=== PATIENT | female | born 1995 | race Caucasian/White ===

== ENCOUNTER 2017-10-11 08:46 | Emergency (ER) | payer OTHER ==
[2017-10-11 08:52] VITALS: TEMP 97.4; BMI 24.0
--- NOTE | 2017-10-11 09:29 | PDOC ---
History of Present Illness - General History Source: Patient Exam Limitations: No Limitations - History of Present Illness Initial Comments: 10/11/17 11:03 Patient is a 22 year old female with no significant past medical history who presents to the ED with complaints of nausea/vomiting that began this morning at 5am. Patient reports waking up this morning experiencing nausea and vomiting suddenly that she states occurred every 30 minutes. She reports currently experiencing only dry heaving while in the ED, but states does currently feel nauseous. Denies chest pain, SOB. Denies fevers, chills. Denies fevers, chills. Denies contact with sick individuals, out of state travelling. Denies any other symptoms. Allergies: None Social history: No alcohol. No illicit drugs. No smoking. Surgical history: None PMD: None <Trent Knowles - Last Filed: 10/11/17 11:03> <Nicki Cullen - Last Filed: 10/11/17 12:03> - General Chief Complaint: Nausea/Vomiting Stated Complaint: VOMITING Time Seen by Provider: 10/11/17 09:28 Past History <Trent Knowles - Last Filed: 10/11/17 11:03> - Past Medical History Asthma: Yes COPD: No - Reproductive History Is Patient Now?: No - Immunization History Immunization Up to Date: Yes - Suicide/Smoking/Psychosocial Hx Smoking History: Never smoked Hx Alcohol Use: No Drug/Substance Use Hx: No Substance Use Type: None <Nicki Cullen - Last Filed: 10/11/17 12:03> - Past Medical History Allergies/Adverse Reactions: Allergies Allergy/AdvReac Type Severity Reaction Status Date / Time No Known Allergies Allergy Verified 10/11/17 08:49 Home Medications: Ambulatory Orders Fluticasone/Salmeterol [Advair Hfa 115-21 Mcg Inhaler] 1 inh PO BID #1 inhaler 06/29/14 Albuterol Sulfate [Proair Respiclick] 90 mcg IH DAILY 08/22/16 Review of Systems - Review of Systems Able to Perform ROS?: Yes Comments:: 10/11/17 11:03 GENERAL/CONSTITUTIONAL: No fever or chills. No weakness. HEAD, EYES, EARS, NOSE AND THROAT: No change in vision. No ear pain or discharge. No sore throat. GASTROINTESTINAL: +Vomiting. +Nausea. No diarrhea or constipation. GENITOURINARY: No dysuria, frequency, or change in urination. CARDIOVASCULAR: No chest pain or shortness of breath. RESPIRATORY: No cough, wheezing, or hemoptysis. MUSCULOSKELETAL: No joint or muscle swelling or pain. No neck or back pain. SKIN: No rash NEUROLOGIC: No headache, vertigo, loss of consciousness, or change in strength/ sensation. ENDOCRINE: No increased thirst. No abnormal weight change. HEMATOLOGIC/LYMPHATIC: No anemia, easy bleeding, or history of blood clots. ALLERGIC/IMMUNOLOGIC: No hives or skin allergy. All Other Systems: Reviewed and Negative <Trent Knowles - Last Filed: 10/11/17 11:03> *Physical Exam - Vital Signs Last Vital Signs Temp Pulse Resp BP Pulse Ox 97.4 F L 91 H 17 111/63 98 10/11/17 08:49 10/11/17 08:49 10/11/17 08:49 10/11/17 08:49 10/11/17 08:49 <Trent Knowles - Last Filed: 10/11/17 11:03> - Vital Signs Last Vital Signs Temp Pulse Resp BP Pulse Ox 97.4 F L 91 H 17 111/63 98 10/11/17 08:49 10/11/17 08:49 10/11/17 08:49 10/11/17 08:49 10/11/17 08:49 - Physical Exam Comments: GENERAL: Awake, alert, and fully oriented, in no acute distress HEAD: No signs of trauma EYES: PERRLA, EOMI, sclera anicteric, conjunctiva clear ENT: Auricles normal inspection, hearing grossly normal, nares patent, oropharynx clear without exudates. Dry mucosa NECK: Normal ROM, supple, no lymphadenopathy, JVD, or masses LUNGS: Breath sounds equal, clear to auscultation bilaterally. No wheezes, and no crackles HEART: Regular rate and rhythm, normal S1 and S2, no murmurs, rubs or gallops ABDOMEN: Soft, diffuse mild tenderness, +hyperactive bowel sounds. No guarding , no rebound. No masses EXTREMITIES: Normal range of motion, no edema. No clubbing or cyanosis. No cords, erythema, or tenderness NEUROLOGICAL: Cranial nerves II through XII grossly intact. Normal speech, normal gait SKIN: Warm, Dry, normal turgor, no rashes or lesions noted. <Nicki Cullen - Last Filed: 10/11/17 12:03> ED Treatment Course - Medications Given in the ED: ED Medications Discontinued Medications Generic Name Dose Route Start Last Admin Trade Name Marly PRN Reason Stop Dose Admin Famotidine/Sodium Chloride 20 mg in 50 mls @ 100 mls/hr 10/11/17 09:33 10:28 Pepcid 20 Mg Premixed Ivpb - IVPB 10/11/17 10:02 100 mls/hr ONCE ONE Administration Ondansetron HCl 4 mg 10/11/17 09:33 10/11/17 10:28 Zofran Injection IVPUSH 10/11/17 09:34 4 mg ONCE ONE Administration <Trent Knowles - Last Filed: 10/11/17 11:03> - LABORATORY CBC & Chemistry Diagram: 10/11/17 10:20 10/11/17 10:20 <Nicki Cullen - Last Filed: 10/11/17 12:03> Medical Decision Making - Medical Decision Making 10/11/17 11:58 Pt reassessed. She reports significant improvement in symptoms. Still having cramping. No signs of acute abdomen. Will give toradol and DC home. Rx for zofran. <Nicki Cullen - Last Filed: 10/11/17 12:03> *DC/Admit/Observation/Transfer - Attestations Scribe Attestion: 10/11/17 11:04 Documentation prepared by Trent Knowles, acting as medical staff physician for Nicki Cullen MD, /DO. <Trent Knowles - Last Filed: 10/11/17 11:03> - Discharge Dispostion Admit: No <Nicki Cullen - Last Filed: 10/11/17 12:03> Diagnosis at time of Disposition: Nausea and vomiting Qualifiers: Vomiting type: unspecified Vomiting Intractability: non-intractable Qualified Code(s): R11.2 - Nausea with vomiting, unspecified - Discharge Dispostion Disposition: HOME Condition at time of disposition: Stable - Patient Instructions Printed Discharge Instructions: DI for Vomiting -- Adult
[2017-10-11] MEDS ORDERED: FAMOTIDINE 20 MG/50 ML IVPB 20 MG/50 ML MG IVPB ONE ×2 (09:33→10:12)
[2017-10-11] MEDS ORDERED: ONDANSETRON 4 MG/2 ML VIAL IVPUSH ONE (09:33)
[2017-10-11] MEDS ORDERED: SODIUM CHLORIDE 2,000 ML IV STA (09:33)
[2017-10-11] MEDS ORDERED: ONDANSETRON 4 MG/2 ML VIAL ONE (10:12)
[2017-10-11 11:26] LABS: BASO % 0.3 % (0-2.0); EOS % 1.8 % (0-4.5); HEMATOCRIT 42.8 % (32.4-45.2); HEMOGLOBIN 14.4 GM/dL (10.7-15.3); LYMPH % 8.3 % (8-40); MCH 30.5 pg (25.7-33.7); MCHC 33.5 g/dl (32.0-36.0); MEAN CELL VOLUME 90.9 fl (80-96); MEAN PLT VOLUME 9.5 fl (7.5-11.1); NEUT % 86.6 % (42.8-82.8); PLATELET COUNT 232 K/MM3 (134-434); RBC 4.71 M/mm3 (3.60-5.2); RDW 12.9 % (11.6-15.6); WHITE BLOOD COUNT 8.7 K/mm3 (4.0-10.0)
[2017-10-11 11:28] LABS: HCG,QUALITATIVE URINE NEGATIVE; URINE APPEARANCE CLEAR; URINE BILIRUBIN NEGATIVE (NEGATIVE); URINE BLOOD 1+ (NEGATIVE); URINE COLOR STRAW; URINE GLUCOSE (UA) NEGATIVE (NEGATIVE); URINE KETONE NEGATIVE (NEGATIVE); URINE LEUK ESTERASE NEGATIVE (NEGATIVE); URINE NITRITE NEGATIVE (NEGATIVE); URINE PROTEIN NEGATIVE (NEGATIVE); URINE UROBILINOGEN NEGATIVE mg/dL (0.2-1.0)
[2017-10-11 11:46] LABS: ALBUMIN 3.7 g/dl (3.4-5.0); ANION GAP 10 (8-16); BLOOD UREA NITROGEN 11 mg/dL (7-18); CALCIUM 8.2 mg/dL (8.5-10.1); CHLORIDE 109 mmol/L (98-107); CO2 24 mmol/L (21-32); GLUCOSE,RANDOM 92 mg/dL (74-106); POTASSIUM 4.2 mmol/L (3.5-5.1); SGPT/ALT 32 U/L (12-78); SODIUM 143 mmol/L (136-145)
[2017-10-11 11:49] LABS: ALK PHOS 67 U/L (45-117); BILIRUBIN,TOTAL 0.9 mg/dL (0.2-1.0); CREATININE 0.6 mg/dL (0.55-1.02); SGOT/AST 24 U/L (15-37)
[2017-10-11] MEDS ORDERED: KETOROLAC TROMETHAMINE 30 MG/1 ML VIAL IVPUSH ONE (11:56)
[2017-10-11] MEDS ORDERED: KETOROLAC TROMETHAMINE 30 MG/1 ML VIAL ONE (12:09)
[2017-10-11 12:31] VITALS: BP 126/74; PULSE 72
[2017-10-11 13:05] LABS: EPI CELLS RARE /HPF (FEW)
[2017-10-11 13:06] LABS: URINE MUCUS RARE
== END 2017-10-11 12:49 | disposition home or self-care (01) ==
LOC: JER 08:46
PROC: 3E033GC Introduction of Other Therapeutic Substance into Peripheral Vein, Percutaneous Approach (ICD-10-PCS; principal; 2017-10-11)
PROC: 3E033GC Introduction of Other Therapeutic Substance into Peripheral Vein, Percutaneous Approach (ICD-10-PCS; 2017-10-11)
PROC: 3E0333Z Introduction of Anti-inflammatory into Peripheral Vein, Percutaneous Approach (ICD-10-PCS; 2017-10-11)
DX: R11.2 Nausea with vomiting, unspecified (principal)
CPT/HCPCS: 36415; 80053; 81003; 81015; 84703; 85025; 99282-25

== ENCOUNTER 2018-06-24 08:54 | Emergency (ER) | payer SELFPAY ==
[2018-06-24] MEDS ORDERED: METOCLOPRAMIDE HCL 10 MG TABLET (FP) PO ONE ×2 (09:13→09:24)
[2018-06-24] MEDS ORDERED: ACETAMINOPHEN 325 MG TABLET (FP) PO ONE (09:13)
--- NOTE | 2018-06-24 09:13 | PDOC ---
History of Present Illness - General Chief Complaint: Headache Stated Complaint: HEADACHE HIT HEAD ON SUNDAY Time Seen by Provider: 06/24/18 08:55 History Source: Patient Exam Limitations: No Limitations - History of Present Illness Initial Comments: 06/24/18 09:08 Gracie is a 23 yo female with no significant past medical history who presents emergency department with a complaint of headache. Patient states that days ago she slipped and fell (her dog spilled water on the floor which she did not see and slipped in it) She struck the back of her head No LOC No amnesia Since falling, she has noted an occipital headache she took motrin yesterday and went to sleep No neck pain or stiffness No nausea or vomiting No bruising PMH: Denies PSH: Denies Medication: Denies ALLERGIES: NKDA Social: Denies alcohol, drug, cigarette use. She is currently both a student and has a part-time job. ROS: GENERAL/CONSTITUTIONAL: No: fever, chills, weakness, loss of appetite. HEAD, EYES, EARS, NOSE AND THROAT: No: change in vision, ear pain, discharge, sore throat, throat swelling. CARDIOVASCULAR: No: chest pain, lightheadedness, palpitations, syncope RESPIRATORY: No: cough, shortness of breath, wheezing, hemoptysis, stridor. GASTROINTESTINAL: No: nausea, vomiting, diarrhea, abdominal pain GENITOURINARY: No: dysuria, hematuria, frequency, urgency, flank pain. MUSCULOSKELETAL: No: back pain, neck pain, joint pain, muscle swelling or pain SKIN: No: lesions, pallor, rash or easy bruising. NEUROLOGIC: Yes: headache No: vertigo, paresthesias, weakness ENDOCRINE: No: unexplained weight gain or loss HEMATOLOGIC/LYMPHATIC: No: anemia, easy bleeding, swelling nodes. GENERAL: The patient is in no acute distress. HEAD: Normal with no signs of trauma. EYES: PERRLA, EOMI, sclera anicteric, conjunctiva clear. ENT: Ears normal, nares patent, oropharynx clear without exudates. Moist mucous membranes. Cerumen impacted (hemotympanum could not be assessed) NECK: Normal range of motion, supple without midline tenderness LUNGS: Breath sounds equal, clear to auscultation bilaterally. No wheezes, and no crackles. HEART:Regular rate and rhythm, normal S1 and S2 without murmur, rub or gallop. ABDOMEN: Soft, nontender, normoactive bowel sounds. No guarding, no rebound. No masses palpable. EXTREMITIES: Normal range of motion, no edema. No clubbing or cyanosis. No erythema, or tenderness. NEUROLOGICAL: Cranial nerves II through XII grossly intact. Normal speech. No focal neurological deficits. MUSCULOSKELETAL: Back non-tender to palpation, no CVA tenderness SKIN: No bruising noted beneath the eyes or overlying the mastoid 06/24/18 09:13 Past History - Past Medical History Allergies/Adverse Reactions: Allergies Allergy/AdvReac Type Severity Reaction Status Date / Time No Known Allergies Allergy Verified 06/24/18 08:55 Home Medications: Ambulatory Orders Albuterol Sulfate [Proventil HFA Inhaler -] 1 - 2 inh PO BID 06/24/18 Metoclopramide HCl [Reglan -] 10 mg PO BID PRN #14 tablet 06/24/18 Asthma: Yes COPD: No DVT: No - Immunization History Immunization Up to Date: Yes - Suicide/Smoking/Psychosocial Hx Smoking History: Never smoked Hx Alcohol Use: No Drug/Substance Use Hx: No Substance Use Type: None Medical Decision Making - Medical Decision Making 06/24/18 09:26 Given presentation 4 days s/p injury, will avoid CT head (given her age, pt is neurologically in tact 4 days s/p injury) Most likely concussed Based on malian CT rules, CT not indicated Will discharge to home Will ask pt to follow up with PMD 06/24/18 12:49 *DC/Admit/Observation/Transfer Diagnosis at time of Disposition: Head trauma Qualifiers: Encounter type: initial encounter Qualified Code(s): S09.90XA - Unspecified injury of head, initial encounter Headache Qualifiers: Headache type: unspecified Headache chronicity pattern: unspecified pattern Intractability: not intractable Qualified Code(s): R51 - Headache - Discharge Dispostion Disposition: HOME Condition at time of disposition: Stable Decision to Admit order: No - Prescriptions Prescriptions: Metoclopramide HCl [Reglan -] 10 mg PO BID PRN #14 tablet PRN Reason: Headache - Referrals - Patient Instructions Printed Discharge Instructions: DI for Concussion, DI for Post-traumatic Headache, DI for Closed Head Injury, DI for Postconcussion Syndrome Additional Instructions: Gracie Thank you for coming in to the ER today Follow up with your primary care doctor within 48-72 hours. Rest. Take Acetaminophen (Extra strength Tylenol - 2 tablets) every 8 hours OR motrin 600mg every 8 hours, as needed, for pain. you can also take reglan for the headache as prescribed. Often individuals develop a headache associated with nausea in the days/hours after a head injury. This is called a concussion. Please return to the ED if you develop significant worsening of pain, profuse vomiting, dizziness, changes in vision, difficulty walking/speaking, weakness or numbness to your extremities. - Post Discharge Activity Forms/Work/School Notes: Back to Work, Back to School
[2018-06-24 09:19] VITALS: BP 106/73; PULSE 72; TEMP 98.7; BMI 24.4
[2018-06-24] MEDS ORDERED: ACETAMINOPHEN 325 MG TABLET (FP) ONE (09:24)
== END 2018-06-24 09:36 | disposition home or self-care (01) ==
LOC: FER 08:54
DX: S09.90XA Unspecified injury of head, initial encounter (principal); R51 Headache; W01.0XXA Fall on same level from slipping, tripping and stumbling without subsequent striking against object, initial encounter; Y93.89 Activity, other specified; Y92.008 Other place in unspecified non-institutional (private) residence as the place of occurrence of the external cause; J45.909 Unspecified asthma, uncomplicated
CPT/HCPCS: 99281-25

== ENCOUNTER 2018-07-04 19:38 | Emergency (ER) | payer SELFPAY ==
[2018-07-04 19:48] VITALS: BP 123/67; PULSE 90; TEMP 98.5; BMI 24.3
[2018-07-04] MEDS ORDERED: ALBUTEROL SO4 2.5/IPRATROPIUM 0.5 INH SOL 3 ML VIAL.NEB. NEB ONE ×4 (20:07→21:06)
--- NOTE | 2018-07-04 20:31 | PDOC ---
History of Present Illness - General History Source: Patient Exam Limitations: No Limitations - History of Present Illness Initial Comments: 07/04/18 20:42 The patient is a 23 year old female presenting with her friend, with a significant past medical history of asthma, who presents to the ED complaining of shortness of breath, chest pain, nasal congestion, wheezing and cough for the past 5 days. She notes that she tried using albuterol at home, with minimal relief of her symptoms. She notes that her chest pain is a tightness that is mild in severity. She notes that her cough is wet but she is not producing any sputum. She denies any prior admissions for her asthma or intubations. The patient denies chest pain, headache and dizziness. Denies fever, chills, nausea, vomiting, diarrhea or constipation. Denies dysuria, frequency, urgency and hematuria. Allergies: None Past surgical history: None reported Social History: No tobacco or drug use reported <Eduard Lobato - Last Filed: 07/04/18 20:44> <Tonya Moreland - Last Filed: 07/05/18 05:00> - General Chief Complaint: Asthma Stated Complaint: CHEST TIGHTNESS Time Seen by Provider: 07/04/18 19:39 Past History <Eduard Lobato - Last Filed: 07/04/18 20:44> - Past Medical History Asthma: Yes COPD: No DVT: No - Immunization History Immunization Up to Date: Yes - Suicide/Smoking/Psychosocial Hx Smoking History: Never smoked Have you smoked in the past 12 months: No Hx Alcohol Use: No Drug/Substance Use Hx: No Substance Use Type: None <Tonya Moreland - Last Filed: 07/05/18 05:00> - Past Medical History Allergies/Adverse Reactions: Allergies Allergy/AdvReac Type Severity Reaction Status Date / Time No Known Allergies Allergy Verified 06/24/18 08:55 Home Medications: Ambulatory Orders Albuterol Sulfate [Proventil HFA Inhaler -] 1 - 2 inh PO BID 06/24/18 Albuterol Sulfate [Proair Hfa] 8.5 gm IH ASDIR 07/04/18 Prednisone [Deltasone] 20 mg PO DAILY #5 tablet 07/04/18 Review of Systems - Review of Systems Able to Perform ROS?: Yes Comments:: 07/04/18 20:42 GENERAL/CONSTITUTIONAL: No fever or chills. No weakness. HEAD, EYES, EARS, NOSE AND THROAT: (+) Nasal congestion. No change in vision. No ear pain or discharge. No sore throat. GASTROINTESTINAL: No nausea, vomiting, diarrhea or constipation. GENITOURINARY: No dysuria, frequency, or change in urination. CARDIOVASCULAR: (+) Shortness of breath and chest tightness. RESPIRATORY: (+) Cough, wheezing. No hemoptysis. MUSCULOSKELETAL: No joint or muscle swelling or pain. No neck or back pain. SKIN: No rash NEUROLOGIC: No headache, vertigo, loss of consciousness, or change in strength/ sensation. ENDOCRINE: No increased thirst. No abnormal weight change. HEMATOLOGIC/LYMPHATIC: No anemia, easy bleeding, or history of blood clots. ALLERGIC/IMMUNOLOGIC: No hives or skin allergy. <Eduard Lobato - Last Filed: 07/04/18 20:44> *Physical Exam - Vital Signs Last Vital Signs Temp Pulse Resp BP Pulse Ox 98.5 F 90 16 123/67 97 07/04/18 19:45 07/04/18 19:45 07/04/18 19:45 07/04/18 19:45 07/04/18 19:45 - Physical Exam Comments: 07/04/18 20:41 Constitutional: Awake, alert, oriented. No acute distress. Head: Normocephalic. Atraumatic Eyes: PERRL. EOMI. Conjunctivae are not pale. ENT: Mucous membranes are moist and intact. Posterior pharynx without exudates or erythema. Uvula midline. Neck: Supple. Full ROM. No lymphadenopathy. Cardiovascular: Regular rate. Regular rhythm. S1, S2 regular. Distal pulses are 2+ and symmetric. Pulmonary/Chest: (+) Scattered Expiratory wheezing. No evidence of respiratory distress. Abdominal: Soft and non-distended. There is no tenderness. No rebound, guarding or rigidity. No organomegaly. No palpable masses. Good bowel sounds. Back: No CVA tenderness. Musculoskeletal: No edema. No cyanosis. No clubbing. Full range of motion in all extremities. Nocalf tenderness. Radial/pedal pulses are intact and 2+ bilaterally Skin: Skin is warm and dry. No petechiae. No purpura. Neurological: Alert and oriented to person, place, and time. Cranial nerves II -XII are grossly intact. Normal speech. Strength is grossly symmetric. No sensory deficits. Psychiatric: Good eye contact. Normal interaction, affect and behavior. <Eduard Lobato - Last Filed: 07/04/18 20:44> - Vital Signs Last Vital Signs Temp Pulse Resp BP Pulse Ox 98.5 F 90 16 123/67 97 07/04/18 19:45 07/04/18 19:45 07/04/18 19:45 07/04/18 19:45 07/04/18 19:45 <Tonya Moreland - Last Filed: 07/05/18 05:00> ED Treatment Course - Medications Given in the ED: ED Medications Discontinued Medications Generic Name Dose Route Start Last Admin Trade Name Freq PRN Reason Stop Dose Admin Albuterol/Ipratropium 1 amp 07/04/18 20:39 07/04/18 20:00 Duoneb - NEB 07/04/18 20:40 1 amp ONCE ONE Administration <Eduard Lobato - Last Filed: 07/04/18 20:44> Medical Decision Making - Medical Decision Making Documentation has been prepared under my direction and personally reviewed by me in its entirety. I attest that this documented accurately reflects all work, treatment, procedures and medical decision making performed by me. As noted above, this 23-year-old woman with a lifelong history of asthma presents with a few day history of upper respiratory infection symptoms and one- day history of wheezing/chest tightness. Patient has no previous history of inpatient admission or intubation for her asthma. She uses albuterol inhaler/ nebulizer. She states that she had been prescribed Advair but had been generally noncompliant with its use. She reports no fever/chills or significant shortness of breath. She has nonpurulent phlegm. Exam as noted. Patient had received 2 DuoNeb treatments prior to exam. She had some residual expiratory wheezing after the second DuoNeb treatment and a third was given. After the third treatment, patient had excellent air exchange and no further expiratory wheezing. Patient given 40 mg prednisone by mouth. Five-day treatment of prednisone 20 mg daily prescribed. Patient should follow-up with her general doctor within the next 5 days and return to the ER if she has any further shortness of breath/chest tightness/persistent wheezing. Also, she should return or follow-up with her doctor sooner if she develops fever or purulent sputum <Tonya Moreland - Last Filed: 07/05/18 05:00> *DC/Admit/Observation/Transfer - Attestations Scribe Attestion: 07/04/18 20:41 Documentation prepared by Eduard Lobato, acting as center medical director for Tonya Moreland MD <Eduard Lobato - Last Filed: 07/04/18 20:44> <Tonya Moreland - Last Filed: 07/05/18 05:00> Diagnosis at time of Disposition: Asthma exacerbation Qualifiers: Asthma severity: moderate Asthma persistence: unspecified Qualified Code(s): J45.901 - Unspecified asthma with (acute) exacerbation - Discharge Dispostion Disposition: HOME Condition at time of disposition: Stable - Prescriptions Prescriptions: Prednisone [Deltasone] 20 mg PO DAILY #5 tablet - Referrals Referrals: Teresa Gipson [Primary Care Provider] - Call tomorrow - Patient Instructions Printed Discharge Instructions: Asthma -- Adult Additional Instructions: Continue albuterol nebulizer as needed Prednisone 20 mg daily for the next 5 days Return to ER if you have persistent wheezing/chest tightness or develop high fever/shortness of breath Call your healthcare provider tomorrow to make an appointment for follow-up within 5 days - Post Discharge Activity
[2018-07-04] MEDS ORDERED: predniSONE 20 MG TABLET (UD) PO ONE (21:00)
[2018-07-04] MEDS ORDERED: predniSONE 20 MG TABLET (UD) ONE (21:10)
== END 2018-07-04 21:13 | disposition home or self-care (01) ==
LOC: FER 19:38
PROC: 3E0F7GC Introduction of Other Therapeutic Substance into Respiratory Tract, Via Natural or Artificial Opening (ICD-10-PCS; principal; 2018-07-04)
DX: J45.901 Unspecified asthma with (acute) exacerbation (principal)
CPT/HCPCS: 99281-25; J7620

== ENCOUNTER 2019-02-15 18:22 | Emergency (ER) | payer SELFPAY, OTHER | END 2019-02-15 21:03 | disposition home or self-care (01) | LOC: JER 18:22 ==

== ENCOUNTER 2019-09-27 05:54 | Emergency (ER) | payer SELFPAY ==
[2019-09-27 06:52] VITALS: TEMP 97.6; BMI 21.4
[2019-09-27] MEDS ORDERED: FOLIC ACID INJECTION - 1 MG, THIAMINE HCL 100 MG, MULTIVIT INJECTION ADULT 10 ML in SOD... IVPB ONE (07:21)
[2019-09-27] MEDS ORDERED: ONDANSETRON 4 MG/2 ML VIAL IVPUSH ONE (07:22)
[2019-09-27] MEDS ORDERED: ONDANSETRON 4 MG/2 ML VIAL ONE (07:41)
--- NOTE | 2019-09-27 07:59 | PDOC ---
History of Present Illness - General Chief Complaint: Headache Stated Complaint: INTOX Time Seen by Provider: 09/27/19 07:17 - History of Present Illness Initial Comments: 09/27/19 07:51 CHIEF COMPLAINT: vomiting, headache HISTORY OF PRESENT ILLNESS: 24 yo F with hx of asthma presents to ED with abdominal pain, headache, and vomiting. Patient reports she "has had a UTI" and was taking azithromycin that she "just had" for the infection and went out drinking last night. Patient's cousin is at bedside and reports the patient "drank a lot more than the rest of us combined." Patient c/o of "burning headache" and generalized abdominal pain. No recent travel or sick contacts. PAST MEDICAL HISTORY: asthma FAMILY HISTORY: Denies SOCIAL HISTORY: Denies tobacco, alcohol, illicit drug use. SURGICAL HISTORY: Denies ALLERGIES: No known drug allergies REVIEW OF SYSTEMS General/Constitutional: Denies fever or chills. Denies weakness, weight change. HEENT: Denies change in vision. Denies ear pain or discharge. Denies sore throat. Cardiovascular: Denies chest pain or shortness of breath. Respiratory: Denies cough, wheezing, or hemoptysis. Gastrointestinal: Vomiting and diarrhea "all night." Denies rectal bleeding. Genitourinary: Denies dysuria, frequency, or change in urination. Musculoskeletal: Denies joint or muscle swelling or pain. Denies neck or back pain. Skin and breasts: Denies rash or easy bruising. Neurologic: Headache since this morning. Denies vertigo, loss of consciousness , or loss of sensation. Psychiatric: Denies depression or anxiety. PHYSICAL EXAM General Appearance: Well-appearing, appropriately dressed. No apparent distress , no intoxication. HEENT: EOMI, PERRLA, normal ENT inspection, normal voice, TMs normal, pharynx normal. No conjunctival pallor. No photophobia, scleral icterus. Neck: Supple. Trachea midline. No tenderness, rigidity, carotid bruit, stridor , lymphadenopathy, or thyromegaly. Respiratory/Chest: Lungs CTAB. No shortness of breath, chest tenderness, respiratory distress, accessory muscle use. No crackles, rales, rhonchi, stridor , wheezing, dullness Cardiovascular: RRR. S1, S2. No JVD, murmur, bradycardia, tachycardia. Vascular Pulses: Dorsalis-Pedis (R): 2+, Dorsalis-Pedis (L): 2+ Gastrointestinal/Abdominal: Generalized abdominal tenderness. No organomegaly , pulsatile mass, guarding, hernia, hepatomegaly, splenomegaly. Lymphatic: No adenopathy, tenderness. Musculoskeletal/Extremities: Normal inspection. FROM of all extremities, normal capillary refill. Pelvis Stable. No CVA tenderness. No tenderness to extremities, pedal edema, swelling, erythema or deformity. Integumentary: Appropriate color, dry, warm. No cyanosis, erythema, jaundice or rash Neurologic: operating room aide II-XII intact. Fully oriented, alert. Appropriate mood/affect. Motor strength 5/5. No appreciable EOM palsy, facial droop or sensory deficit. 09/27/19 10:22 Past History - Past Medical History Allergies/Adverse Reactions: Allergies Allergy/AdvReac Type Severity Reaction Status Date / Time amoxicillin AdvReac Rash Verified 09/27/19 06:36 Home Medications: Ambulatory Orders Ondansetron [Zofran *Odt*] 4 mg SL TID #21 od.tablet 09/27/19 Asthma: Yes COPD: No DVT: No - Immunization History Immunization Up to Date: Yes - Psycho Social/Smoking Cessation Hx Smoking History: Current every day smoker Have you smoked in the past 12 months: No Information on smoking cessation initiated: Yes Hx Alcohol Use: Yes Drug/Substance Use Hx: No Substance Use Type: None *Physical Exam - Vital Signs Last Vital Signs Temp Pulse Resp BP Pulse Ox 97.6 F 118 H 20 102/66 98 09/27/19 06:32 09/27/19 06:32 09/27/19 06:32 09/27/19 06:32 09/27/19 06:32 ED Treatment Course - LABORATORY CBC & Chemistry Diagram: 09/27/19 07:37 09/27/19 07:37 - Medications Given in the ED: ED Medications Discontinued Medications Generic Name Dose Route Start Last Admin Trade Name Freq PRN Reason Stop Dose Admin Ondansetron HCl 4 mg 09/27/19 07:22 09/27/19 07:45 Zofran Injection IVPUSH 09/27/19 07:23 4 mg ONCE ONE Administration Medical Decision Making - Medical Decision Making 09/27/19 10:23 24 yo F with hx of asthma presents to ED with abdominal pain, headache, and vomiting. -labs, zofran -toradol Labs unremarkable, likely viral gastroenteritis vs alcohol intox. Patient reassessed after administration of meds. Patient reports she is feeling much better and requests to go home. Patient appears dry from vomiting , attempted to finish banana bag but patient states she prefers to go home. Pt BP 97/59 but has low BP at baseline. Advised patient to take medication as prescribed and follow up with PCP within the next week. Advised patient of signs and symptoms for return to ED. Patient verbalized understanding and agrees to plan. Discharge - Discharge Information Problems reviewed: Yes Clinical Impression/Diagnosis: Gastroenteritis Alcohol intoxication Qualifiers: Complication of substance-induced condition: uncomplicated Qualified Code(s): F10.920 - Alcohol use, unspecified with intoxication, uncomplicated Condition: Stable Disposition: HOME - Admission No - Additional Discharge Information Prescriptions: Ondansetron [Zofran *Odt*] 4 mg SL TID #21 od.tablet - Follow up/Referral Referrals: Marquis Macias MD [Staff Physician] - - Patient Discharge Instructions Patient Printed Discharge Instructions: DI for Viral Gastroenteritis -- Adult, DI for Alcohol Poisoning - Post Discharge Activity
[2019-09-27 08:25] LABS: BASO % 0.4 % (0-2.0); EOS % 0.8 % (0-4.5); HEMATOCRIT 42.3 % (32.4-45.2); HEMOGLOBIN 14.5 GM/dL (10.7-15.3); LYMPH % 11.8 % (8-40); MCH 31.4 pg (25.7-33.7); MCHC 34.2 g/dl (32.0-36.0); MEAN CELL VOLUME 91.9 fl (80-96); MONO % 2.8 % (3.8-10.2); NEUT % 84.2 % (42.8-82.8); PLATELET COUNT 303 K/MM3 (134-434); RDW 12.6 % (11.6-15.6); WHITE BLOOD COUNT 11.5 K/mm3 (4.0-10.0)
[2019-09-27] MEDS ORDERED: KETOROLAC TROMETHAMINE 15 MG/ML VIAL IVPUSH ONE (08:31)
[2019-09-27] MEDS ORDERED: KETOROLAC TROMETHAMINE 15 MG/ML VIAL ONE (08:42)
[2019-09-27 08:46] LABS: URINE APPEARANCE CLEAR; URINE BILIRUBIN NEGATIVE (NEGATIVE); URINE COLOR YELLOW; URINE GLUCOSE (UA) NEGATIVE (NEGATIVE); URINE KETONE NEGATIVE (NEGATIVE); URINE LEUK ESTERASE NEGATIVE (NEGATIVE); URINE NITRITE NEGATIVE (NEGATIVE); URINE PROTEIN NEGATIVE (NEGATIVE); URINE UROBILINOGEN 0.2 mg/dL (0.2-1.0)
[2019-09-27 08:57] LABS: ALBUMIN 3.8 g/dl (3.4-5.0); BILIRUBIN,TOTAL 0.2 mg/dL (0.2-1); BLOOD UREA NITROGEN 8.4 mg/dL (7-18); CALCIUM 8.6 mg/dL (8.5-10.1); CREATININE 0.7 mg/dL (0.55-1.3); POTASSIUM 4.3 mmol/L (3.5-5.1); TOT PROT 7.6 g/dl (6.4-8.2)
[2019-09-27 10:21] VITALS: BP 96/63; PULSE 78
--- NOTE | 2019-09-27 23:15 | EKG ---
Test Reason : Blood Pressure : / mmHG Vent. Rate : 090 BPM Atrial Rate : 090 BPM P-R Int : 186 ms QRS Dur : 084 ms QT Int : 382 ms P-R-T Axes : 053 071 053 degrees QTc Int : 467 ms NORMAL SINUS RHYTHM NORMAL ECG NO PREVIOUS ECGS AVAILABLE Confirmed by SIRIA FAY MD ([id number]) on 09/27/2019 11:14:26 PM Referred By: Confirmed By:SIRIA FAY MD
== END 2019-09-27 10:15 | disposition home or self-care (01) ==
LOC: JER 05:54
PROC: 3E033GC Introduction of Other Therapeutic Substance into Peripheral Vein, Percutaneous Approach (ICD-10-PCS; principal; 2019-09-27)
DX: K52.9 Noninfective gastroenteritis and colitis, unspecified (principal); F10.920 Alcohol use, unspecified with intoxication, uncomplicated; Z88.0 Allergy status to penicillin
CPT/HCPCS: 36415; 80053; 81003; 84703; 85025; 93005; 93010; 99283-25; J7030

== ENCOUNTER 2020-04-19 22:37 | Emergency (ER) | payer OTHER ==
--- NOTE | 2020-04-19 22:48 | PDOC ---
Rapid Medical Evaluation Chief Complaint: Pain, Acute Time Seen by Provider: 04/19/20 22:41 Medical Evaluation: Allergies Allergy/AdvReac Type Severity Reaction Status Date / Time amoxicillin AdvReac Rash Verified 09/27/19 06:36 04/19/20 22:44 25 year old female c/o right flank pain/ RLQ for the last month. + nausea, no vomiting, diarrhea. denies vaginal bleeding / discharge. denies STD exposure. patient sent from [facility] urgent care for evaluation Last Vital Signs Temp Pulse Resp BP Pulse Ox 98.6 F 79 20 146/83 98 04/19/20 22:41 04/19/20 22:41 04/19/20 22:41 04/19/20 22:41 04/19/20 22:41 LMP: 03/28/20 A: abdominal pain P: labs UA 04/20/20 00:19 Discharge Disposition - Diagnosis Flank pain Abdominal pain Qualifiers: Abdominal location: right lower quadrant Qualified Code(s): R10.31 - Right lower quadrant pain - Referrals Referrals: Teresa Gipson [Primary Care Provider] - - Patient Instructions - Post Discharge Activity
[2020-04-19 22:56] VITALS: BMI 20.7
--- NOTE | 2020-04-19 23:55 | PDOC ---
History of Present Illness - General Chief Complaint: Pain Stated Complaint: PAIN/LRQ/R/LOWER BACK/NAUSEA Time Seen by Provider: 04/19/20 22:41 History Source: Patient Exam Limitations: No Limitations - History of Present Illness Initial Comments: 04/19/20 23:55 25 year old female c/o right flank pain/ RLQ for the last month. + nausea, no vomiting, diarrhea. denies vaginal bleeding / discharge. denies STD exposure. patient sent from [facility] urgent care for evaluation Past History - Medical History Allergies/Adverse Reactions: Allergies Allergy/AdvReac Type Severity Reaction Status Date / Time No Known Allergies Allergy Verified 04/19/20 22:47 Home Medications: Ambulatory Orders Ondansetron [Zofran *Odt*] 4 mg SL TID #21 od.tablet 09/27/19 Asthma: Yes COPD: No DVT: No - Immunization History Immunization Up to Date: Yes - Psycho-Social/Smoking History Smoking History: Never smoked Have you smoked in the past 12 months: No - Substance Abuse Hx (Audit-C & DAST Scrn) How often the patient has a drink containing alcohol: Never Score: In Men: 4 or > Positive; In Women: 3 or > Positive: 0 Screen Result (Pos requires Nsg. Audit-10AR): Negative In the last yr the pt used illegal drug/Rx for NonMed reason: No Score: Yes response is considered Positive: 0 Screen Result (Positive result requires Nsg. DAST-10): Negative *Physical Exam - Vital Signs Last Vital Signs Temp Pulse Resp BP Pulse Ox 98.6 F 79 20 146/83 98 04/19/20 22:41 04/19/20 22:41 04/19/20 22:41 04/19/20 22:41 04/19/20 22:41 Discharge - Discharge Information Clinical Impression/Diagnosis: Flank pain Abdominal pain Qualifiers: Abdominal location: right lower quadrant Qualified Code(s): R10.31 - Right lower quadrant pain - Follow up/Referral Referrals: Teresa Gipson [Primary Care Provider] - - Patient Discharge Instructions - Post Discharge Activity
--- NOTE | 2020-04-20 00:19 | PDOC ---
History of Present Illness - General Chief Complaint: Pain Stated Complaint: PAIN/LRQ/R/LOWER BACK/NAUSEA Time Seen by Provider: 04/19/20 22:41 - History of Present Illness Initial Comments: 04/20/20 02:57 25-year-old female complaining of right upper and right lower quadrant pain with associated nausea for the last 1 month. Patient was seen in urgent care prior to arrival to this ER. Patient reports that she was referred to the ER for right lower quadrant pain evaluation. Denies fever/chills No past medical history Past History - Medical History Allergies/Adverse Reactions: Allergies Allergy/AdvReac Type Severity Reaction Status Date / Time No Known Allergies Allergy Verified 04/19/20 22:47 Home Medications: Ambulatory Orders Ondansetron [Zofran *Odt*] 4 mg SL TID #21 od.tablet 09/27/19 Asthma: Yes COPD: No DVT: No - Immunization History Immunization Up to Date: Yes - Psycho-Social/Smoking History Smoking History: Never smoked Have you smoked in the past 12 months: No - Substance Abuse Hx (Audit-C & DAST Scrn) How often the patient has a drink containing alcohol: Never Score: In Men: 4 or > Positive; In Women: 3 or > Positive: 0 Screen Result (Pos requires Nsg. Audit-10AR): Negative In the last yr the pt used illegal drug/Rx for NonMed reason: No Score: Yes response is considered Positive: 0 Screen Result (Positive result requires Nsg. DAST-10): Negative Review of Systems - Review of Systems Able to Perform ROS?: Yes Is the patient limited Frisian proficient: No Constitutional: Yes: Unintentional Wgt. Loss. No: Symptoms Reported, See HPI, Chills, Diaphoresis, Fever, Loss of Appetite, Malaise, Night Sweats, Weakness, Weight Stable, Unexplained wgt Loss, Other Respiratory: No: Symptoms reported, See HPI, Cough, Orthopnea, Shortness of Breath, SOB with Exertion, SOB at Rest, Stridor, Wheezing, Productive cough, Hemoptysis, Other ABD/GI: Yes: Nausea, Poor Appetite, Abdominal cramping. No: Symptoms Reported, See HPI, Abdominal Distended, Abd. Pain w/ defecation, Blood Streaked Bowels, Constipated, Diarrhea, Difficulty Swallowing, Poor Fluid Intake, Rectal Bleeding, Vomiting, Indigestion, Tarry Stools, Other *Physical Exam - Vital Signs Last Vital Signs Temp Pulse Resp BP Pulse Ox 98.6 F 79 20 146/83 98 04/19/20 22:41 04/19/20 22:41 04/19/20 22:41 04/19/20 22:41 04/19/20 22:41 - Physical Exam General Appearance: Yes: Appropriately Dressed Respiratory/Chest: positive: Lungs Clear, Normal Breath Sounds Cardiovascular: positive: Regular Rhythm, Regular Rate Female Pelvic Exam: positive: normal external exam, cervical os closed, normal adnexa. negative: CMT, adnexal tenderness Gastrointestinal/Abdominal: positive: Normal Bowel Sounds, Tender (RLQ/RUQ), Soft Musculoskeletal: positive: Normal Inspection. negative: CVA Tenderness Extremity: positive: Normal Capillary Refill, Normal Inspection, Normal Range of Motion Integumentary: positive: Normal Color, Dry, Warm Neurologic: positive: Fully Oriented, Alert, Normal Mood/Affect ED Treatment Course - LABORATORY CBC & Chemistry Diagram: 04/19/20 23:59 04/19/20 23:59 ED Progress Note - Progress Note Progress Note: Abdominal pain P: labs US CTAP IVF Zofran pain control Medical Decision Making - Medical Decision Making 04/20/20 02:22 Abdominal US: Right upper quadrant ultrasound:The liver is normal, without mass or biliary duct dilation. The gallbladder is normal. The CBD is not dilated and measures3 millimeters in diameter. Right kidney measures 10.6centimeters in length and is unremarkable. The visualized aorta and IVC are normal. Pancreas is partially obscured, but appears normal. 04/20/20 02:57 CTAP: Lung bases are clear. The visualized cardiac chambers are normal size and configuration. Normal liver, gallbladder, pancreas, spleen, adrenal glands and kidneys. The stomach and abdominal small and large bowel are normal. There is no aortic aneurysm. There is no significant retroperitoneal lymphadenopathy. The pelvic small and large bowel are normal. The appendix is normal. There is a 2.3 cm left ovarian cyst and 2.7 cm septated right ovarian cyst. The uterus is normal. Urinary bladder is unremarkable. There is minimal pelvic free fluid. No discrete pelvic lymphaden opathy is identified. Discharge - Discharge Information Problems reviewed: Yes Clinical Impression/Diagnosis: Abdominal pain Qualifiers: Abdominal location: right lower quadrant Qualified Code(s): R10.31 - Right lower quadrant pain Condition: Improved Disposition: HOME - Follow up/Referral Referrals: Teresa Gipson [Primary Care Provider] - María Boyle MD [Staff Physician] - - Patient Discharge Instructions Patient Printed Discharge Instructions: DI for Abdominal Pain-Adult Additional Instructions: Drink plenty of fluids. Start small meals. It is important that you follow-up with a sole blacker. It is important that you follow-up with the nuclear design engineer You may take Tylenol every 4-6 hours as needed for pain Return to the emergency room for any worsening symptoms - Post Discharge Activity Work/Back to School Note: Back to Work
[2020-04-20] MEDS ORDERED: SODIUM CHLORIDE 1,000 ML IV STA (00:37)
[2020-04-20] MEDS ORDERED: ONDANSETRON 4 MG/2 ML VIAL IVPUSH ONE (00:37)
[2020-04-20] MEDS ORDERED: ONDANSETRON 4 MG/2 ML VIAL ONE (00:48)
[2020-04-20 00:53] LABS: BASO % 0.7 % (0-2.0); HEMATOCRIT 39.5 % (32.4-45.2); HEMOGLOBIN 13.1 GM/dL (10.7-15.3); LYMPH % 21.5 % (8-40); MCH 31.1 pg (25.7-33.7); MCHC 33.3 g/dl (32.0-36.0); MEAN CELL VOLUME 93.4 fl (80-96); MEAN PLT VOLUME 10.8 fl (7.5-11.1); MONO % 4.8 % (3.8-10.2); PLATELET COUNT 239 K/MM3 (134-434); RBC 4.23 M/mm3 (3.60-5.2); RDW 12.7 % (11.6-15.6); WHITE BLOOD COUNT 11.1 K/mm3 (4.0-10.0)
[2020-04-20 01:17] LABS: ALBUMIN 3.8 g/dl (3.4-5.0); BILIRUBIN,TOTAL 0.5 mg/dL (0.2-1); BLOOD UREA NITROGEN 10.4 mg/dL (7-18); CALCIUM 9.5 mg/dL (8.5-10.1); CREATININE 0.7 mg/dL (0.55-1.3); POTASSIUM 4.2 mmol/L (3.5-5.1); TOT PROT 6.8 g/dl (6.4-8.2)
[2020-04-20 01:22] LABS: EPI CELLS >36 /uL (0-25.1); HCG,QUALITATIVE URINE Negative; HYALINE CASTS 1 /uL (0-3.1); PH,URINE 5.5 (5.0-8.0); URINE APPEARANCE CLEAR; URINE BACTERIA 644 /uL (0-1359); URINE BILIRUBIN NEGATIVE (NEGATIVE); URINE COLOR YELLOW; URINE GLUCOSE (UA) NEGATIVE (NEGATIVE); URINE KETONE NEGATIVE (NEGATIVE); URINE LEUK ESTERASE TRACE (NEGATIVE); URINE NITRITE NEGATIVE (NEGATIVE); URINE PROTEIN NEGATIVE (NEGATIVE); URINE RBC 7 /uL (0-23.9); URINE WBC 8 /uL (0-25.8)
[2020-04-20] MEDS ORDERED: KETOROLAC TROMETHAMINE 30 MG/1 ML VIAL IVPUSH ONE (02:59)
[2020-04-20] MEDS ORDERED: KETOROLAC TROMETHAMINE 30 MG/1 ML VIAL ONE (03:06)
[2020-04-20 03:12] VITALS: BP 132/81; PULSE 76; TEMP 98.3
== END 2020-04-20 03:12 | disposition home or self-care (01) ==
LOC: JER 22:37
PROC: 3E023NZ Introduction of Analgesics, Hypnotics, Sedatives into Muscle, Percutaneous Approach (ICD-10-PCS; principal; 2020-04-19)
PROC: 3E023GC Introduction of Other Therapeutic Substance into Muscle, Percutaneous Approach (ICD-10-PCS; 2020-04-19)
PROC: 3E0337Z Introduction of Electrolytic and Water Balance Substance into Peripheral Vein, Percutaneous Approach (ICD-10-PCS; 2020-04-19)
DX: R10.31 Right lower quadrant pain (principal)
CPT/HCPCS: 36415; 74177-TC; 76705-TC; 80053; 81003; 84703; 85025; 87086; 99285-25

== ENCOUNTER 2021-08-19 08:20 | Emergency (ER) | payer SELFPAY ==
[2021-08-19 08:32] VITALS: BMI 22.6
[2021-08-19] MEDS ORDERED: FAMOTIDINE 20 MG/50 ML IVPB 20 MG/50 ML MG IVPB ONE ×2 (09:04→09:33)
[2021-08-19] MEDS ORDERED: MAG HYDROX/AL HYDROX/SIMETH 30 ML UNIT-DOSE CUP PO ONE (09:05)
[2021-08-19] MEDS ORDERED: ONDANSETRON 4 MG/2 ML VIAL IVPUSH ONE (09:05)
[2021-08-19] MEDS ORDERED: MAG HYDROX/AL HYDROX/SIMETH 30 ML UNIT-DOSE CUP ONE (09:32)
[2021-08-19] MEDS ORDERED: ONDANSETRON 4 MG/2 ML VIAL ONE (09:32)
[2021-08-19] MEDS ORDERED: SODIUM CHLORIDE 0.9% 500 ML INFUS.BAG IV ONE (09:54)
[2021-08-19 10:24] LABS: BASO % 0.7 % (0-2.0); EOS % 2.7 % (0-4.5); HEMATOCRIT 42.2 % (32.4-45.2); HEMOGLOBIN 14.5 GM/dL (10.7-15.3); LYMPH % 9.3 % (8-40); MCH 31.1 pg (25.7-33.7); MCHC 34.3 g/dl (32.0-36.0); MEAN CELL VOLUME 90.6 fl (80-96); MEAN PLT VOLUME 9.3 fl (7.5-11.1); MONO % 3.1 % (3.8-10.2); NEUT % 84.2 % (42.8-82.8); PLATELET COUNT 298 10^3/uL (134-434); RBC 4.66 M/mm3 (3.60-5.2); RDW 12.7 % (11.6-15.6); WHITE BLOOD COUNT 11.5 K/mm3 (4.0-10.0)
[2021-08-19 10:58] VITALS: BP 112/74; PULSE 90; TEMP 97.6
[2021-08-19] MEDS ORDERED: METOCLOPRAMIDE HCL 10 MG TABLET (FP) PO ONE ×2 (11:09→11:24)
[2021-08-19 11:12] LABS: EPI CELLS >36 /uL (0-25.1); HYALINE CASTS 1 /uL (0-3.1); URINE BACTERIA 1102 /uL (0-1359); URINE RBC 13 /uL (0-23.9); URINE WBC 49 /uL (0-25.8)
[2021-08-19 11:27] LABS: ALBUMIN 4.1 g/dl (3.4-5.0); BILIRUBIN,TOTAL 0.4 mg/dL (0.2-1); BLOOD UREA NITROGEN 13.1 mg/dL (7-18); CALCIUM 8.8 mg/dL (8.5-10.1); CREATININE 0.7 mg/dL (0.55-1.3); TOT PROT 7.5 g/dl (6.4-8.2)
[2021-08-19 11:58] LABS: PH,URINE 8.5 (5.0-8.0); URINE APPEARANCE Clear; URINE BILIRUBIN Negative (NEGATIVE); URINE COLOR Yellow; URINE GLUCOSE (UA) Negative (NEGATIVE); URINE KETONE Negative (NEGATIVE); URINE LEUK ESTERASE Negative (NEGATIVE); URINE NITRITE Negative (NEGATIVE); URINE PROTEIN 1+ (NEGATIVE); URINE UROBILINOGEN 0.2 mg/dL (0.2-1.0)
== END 2021-08-19 12:35 | disposition home or self-care (01) ==
LOC: JER 08:20
PROC: 3E033GC Introduction of Other Therapeutic Substance into Peripheral Vein, Percutaneous Approach (ICD-10-PCS; principal; 2021-08-19)
PROC: 3E033GC Introduction of Other Therapeutic Substance into Peripheral Vein, Percutaneous Approach (ICD-10-PCS; 2021-08-19)
DX: R11.2 Nausea with vomiting, unspecified (principal)
CPT/HCPCS: 36415; 80053; 81003; 83690; 84703; 85025; 87086; 99284-25

== ENCOUNTER 2024-02-02 18:09 | Emergency (ER) | payer OTHER ==
[2024-02-02 18:17] VITALS: BP 119/73; PULSE 79; RESP 18; TEMP 97.6; BMI 23.0
[2024-02-02 18:42] LABS: BASO % 0.6 % (0-2.0); EOS % 12.7 % (0-4.5); HEMATOCRIT 42.9 % (32.4-45.2); HEMOGLOBIN 14.8 GM/dL (10.7-15.3); LYMPH % 14.4 % (8-40); MCHC 34.5 g/dl (32.0-36.0); MEAN CELL VOLUME 89.7 fl (80-96); MEAN PLT VOLUME 8.8 fl (7.5-11.1); MONO % 4.3 % (3.8-10.2); PLATELET COUNT 346 10^3/uL (134-434); RBC 4.78 M/mm3 (3.60-5.2); RDW 12.5 % (11.6-15.6); WHITE BLOOD COUNT 13.1 K/mm3 (4.0-10.0)
[2024-02-02 18:59] LABS: EPI CELLS 7 /uL (0-25.1); HYALINE CASTS 0 /uL (0-3.1); PH,URINE 6.5 (5.0-8.0); URINE APPEARANCE CLEAR; URINE BACTERIA 39 /uL (0-1359); URINE BILIRUBIN NEGATIVE (NEGATIVE); URINE COLOR YELLOW; URINE GLUCOSE (UA) NEGATIVE (NEGATIVE); URINE KETONE NEGATIVE (NEGATIVE); URINE LEUK ESTERASE NEGATIVE (NEGATIVE); URINE NITRITE NEGATIVE (NEGATIVE); URINE PROTEIN NEGATIVE (NEGATIVE); URINE RBC 8 /uL (0-23.9); URINE UROBILINOGEN 0.2 mg/dL (0.2-1.0); URINE WBC 3 /uL (0-25.8)
[2024-02-02 19:03] LABS: POTASSIUM 3.8 mmol/L (3.5-5.1)
[2024-02-02 19:06] LABS: ALBUMIN 3.6 g/dl (3.4-5.0); BLOOD UREA NITROGEN 11.4 mg/dL (7-18); CALCIUM 9.2 mg/dL (8.5-10.1)
[2024-02-02 19:08] LABS: CREATININE 0.8 mg/dL (0.55-1.3)
[2024-02-02 19:11] LABS: BILIRUBIN,TOTAL 0.4 mg/dL (0.2-1); TOT PROT 7.9 g/dl (6.4-8.2)
[2024-02-02 19:32] LABS: HCG,QUALITATIVE URINE Positive
== END 2024-02-02 20:44 | disposition home or self-care (01) ==
LOC: JER 18:09
DX: O20.9 Hemorrhage in early pregnancy, unspecified (principal); Z3A.01 Less than 8 weeks gestation of pregnancy
CPT/HCPCS: 36415; 76817-TC; 80053; 81003; 84702; 84703; 85025; 86850; 86900; 86901; 87086; 99284-25

== ENCOUNTER 2024-07-06 22:30 | Inpatient (IN) | payer OTHER ==
[2024-07-06] MEDS: LACTATED RINGERS SOLUTION 500 ML IV ONE (22:45)
[2024-07-06] MEDS: LACTATED RINGERS SOLUTION 1,000 ML IV SCH (23:15)
[2024-07-06 23:42] LABS: HEMATOCRIT 36.6 % (32.4-45.2); HEMOGLOBIN 12.4 GM/dL (10.7-15.3); MCH 31.5 pg (25.7-33.7); MCHC 33.8 g/dl (32.0-36.0); MEAN CELL VOLUME 93.2 fl (80-96); MEAN PLT VOLUME 9.4 fl (7.5-11.1); PLATELET COUNT 230 10^3/uL (134-434); RBC 3.92 M/mm3 (3.60-5.2); RDW 13.1 % (11.6-15.6); WHITE BLOOD COUNT 17.6 K/mm3 (4.0-10.0)
[2024-07-07 00:13] LABS: POTASSIUM 3.9 mmol/L (3.5-5.1)
[2024-07-07 00:15] LABS: CALCIUM 8.8 mg/dL (8.5-10.1)
[2024-07-07 00:16] LABS: ALBUMIN 2.8 g/dl (3.4-5.0); BLOOD UREA NITROGEN 8.7 mg/dL (7-18)
[2024-07-07 00:19] LABS: CREATININE 0.5 mg/dL (0.55-1.3)
[2024-07-07 00:20] LABS: BILIRUBIN,TOTAL 0.3 mg/dL (0.2-1)
[2024-07-07 00:21] LABS: TOT PROT 5.9 g/dl (6.4-8.2)
[2024-07-07] MEDS ORDERED: BETAMET ACET/BETAMET NA PH 30 MG/5 ML VIAL ONE (00:29)
[2024-07-07] MEDS: BETAMET ACET/BETAMET NA PH 30 MG/5 ML VIAL IM ONE (00:35)
[2024-07-07 00:42] LABS: INR 0.97 (0.83-1.09); PROTHROMBIN TIME (PATIENT) 11.2 SEC (9.7-13.0)
[2024-07-07 00:44] LABS: ACTIVATED PTT 27.9 SECONDS (25.2-36.5)
[2024-07-07 03:38] LABS: ANISOCYTOSIS 2+; MACROCYTOSIS 0
[2024-07-07 04:22] VITALS: BMI 26.2
[2024-07-07] MEDS: INDOMETHACIN 50 MG CAPSULE PO ONE (06:11)
[2024-07-07] MEDS: SUCRALFATE 1 GM TABLET (FP) PO SCH (06:11)
[2024-07-07 07:02] LABS: HEMATOCRIT 35.8 % (32.4-45.2); HEMOGLOBIN 12.5 GM/dL (10.7-15.3); INR 0.99 (0.83-1.09); MCH 32.5 pg (25.7-33.7); MCHC 34.9 g/dl (32.0-36.0); MEAN CELL VOLUME 93.2 fl (80-96); MEAN PLT VOLUME 9.5 fl (7.5-11.1); PLATELET COUNT 209 10^3/uL (134-434); PROTHROMBIN TIME (PATIENT) 11.4 SEC (9.7-13.0); RBC 3.85 M/mm3 (3.60-5.2); RDW 13.1 % (11.6-15.6); WHITE BLOOD COUNT 18.4 K/mm3 (4.0-10.0)
[2024-07-07 07:05] LABS: ACTIVATED PTT 28.3 SECONDS (25.2-36.5)
[2024-07-07 09:30] LABS: ANISOCYTOSIS 0; MACROCYTOSIS 0
[2024-07-07 09:39] LABS: PH,URINE 7.5 (5.0-8.0); URINE APPEARANCE CLEAR; URINE BILIRUBIN NEGATIVE (NEGATIVE); URINE COLOR YELLOW; URINE GLUCOSE (UA) NEGATIVE (NEGATIVE); URINE KETONE 1+ (NEGATIVE); URINE LEUK ESTERASE NEGATIVE (NEGATIVE); URINE NITRITE NEGATIVE (NEGATIVE); URINE PROTEIN NEGATIVE (NEGATIVE); URINE UROBILINOGEN 0.2 mg/dL (0.2-1.0)
[2024-07-07] MEDS: CEFTRIAXONE 1 GM in DEXTROSE 5%-WATER - 50 ML IVPB ONE (09:45)
[2024-07-07 09:51] LABS: EPI CELLS 3 /uL (0-25.1); HYALINE CASTS 0 /uL (0-3.1); URINE BACTERIA 0 /uL (0-1359); URINE RBC 1 /uL (0-23.9); URINE WBC 0 /uL (0-25.8)
[2024-07-07 11:23] VITALS: BP 119/74; PULSE 102; RESP 20; TEMP 98.1
[2024-07-07] MEDS ORDERED: INDOMETHACIN 25 MG CAPSULE PO SCH (12:00)
== END 2024-07-07 10:33 | disposition short-term general hospital (02) | DRG 833 ==
LOC: JDEL 22:30 → JLDR 07-07 02:00 → OBSVTOIN 07-07 06:20
PROVIDERS: ADMIT Obstetrics & Gynecology; ATTEND Obstetrics & Gynecology
DX: O60.03 Preterm labor without delivery, third trimester (principal); O67.8 Other intrapartum hemorrhage; Z3A.28 28 weeks gestation of pregnancy
CPT/HCPCS: 36415; 59025; 76815-TC; 76830-TC; 80053; 81003; 85025; 85379; 85384; 85610; 85730; 86780; 86850; 86900; 86901; 87086; 87635; 96372; G0378

== ENCOUNTER 2024-07-22 09:40 | Inpatient (IN) | payer OTHER ==
[2024-07-22] MEDS ORDERED: BETAMET ACET/BETAMET NA PH 30 MG/5 ML VIAL ONE (10:00)
[2024-07-22] MEDS: ELECTROLYTE-148 SOLN 1,000 ML IV SCH ×2 (10:00→11:00)
[2024-07-22] MEDS: BETAMET ACET/BETAMET NA PH 30 MG/5 ML VIAL IM ONE (10:10)
[2024-07-22] MEDS ORDERED: AMPICILLIN SODIUM 2 GM VIAL ONE (10:11)
[2024-07-22] MEDS: AMPICILLIN - 2 GM in SODIUM CHLORIDE 100 ML IVPB ONE (10:15)
[2024-07-22] MEDS ORDERED: MAGNESIUM 4GM/H20 - 4 GM/100 ML IVPB IVPB ONE (10:17)
[2024-07-22] MEDS: MAGNESIUM IVPB ONE (10:25)
[2024-07-22] MEDS ORDERED: AZITHROMYCIN IVPB 500 MG/250 ML BAG IVPB ONE (10:33)
[2024-07-22] MEDS: AZITHROMYCIN IVPB 500 MG/250 ML BAG IVPB ONE (10:40)
[2024-07-22] MEDS ORDERED: MAGNESIUM SULFATE 20GM/500ML - 20 GM/500 ML INFUS.BAG ONE (10:55)
[2024-07-22] MEDS: MAGNESIUM SULFATE IVPB SCH (11:00)
[2024-07-22 11:47] LABS: HEMATOCRIT 35.4 % (32.4-45.2); HEMOGLOBIN 12.2 GM/dL (10.7-15.3); MCH 31.7 pg (25.7-33.7); MCHC 34.5 g/dl (32.0-36.0); MEAN PLT VOLUME 9.5 fl (7.5-11.1); PLATELET COUNT 230 10^3/uL (134-434); RBC 3.84 M/mm3 (3.60-5.2); RDW 12.9 % (11.6-15.6); WHITE BLOOD COUNT 23.8 K/mm3 (4.0-10.0)
[2024-07-22 11:57] LABS: ACTIVATED PTT 30.4 SECONDS (25.2-36.5); INR 0.99 (0.83-1.09); PROTHROMBIN TIME (PATIENT) 11.4 SEC (9.7-13.0)
[2024-07-22 12:44] LABS: SYPHILIS W/ RPR CONF NON-REACTIVE (NONREACTIVE)
[2024-07-22 12:59] LABS: POTASSIUM 3.4 mmol/L (3.5-5.1)
[2024-07-22 13:00] LABS: ANISOCYTOSIS 1+; MACROCYTOSIS 0
[2024-07-22 13:04] LABS: BLOOD UREA NITROGEN 6.2 mg/dL (7-18); CALCIUM 8.9 mg/dL (8.5-10.1)
[2024-07-22 13:07] LABS: CREATININE 0.4 mg/dL (0.55-1.3)
[2024-07-22 13:13] LABS: HIV INTERPRETATION NEGATIVE (NEGATIVE)
[2024-07-22 13:21] VITALS: PULSE 129; RESP 18; TEMP 98.2; BMI 25.4
[2024-07-22 14:46] VITALS: BP 123/76
== END 2024-07-22 11:40 | disposition short-term general hospital (02) | DRG 833 ==
LOC: JDEL 09:40 → JLDR 10:00
PROVIDERS: ADMIT Obstetrics & Gynecology; ATTEND Obstetrics & Gynecology
DX: O60.03 Preterm labor without delivery, third trimester (principal); Z3A.30 30 weeks gestation of pregnancy; O26.893 Other specified pregnancy related conditions, third trimester; J45.40 Moderate persistent asthma, uncomplicated
CPT/HCPCS: 36415; 59025; 80048; 85025; 85610; 85730; 86780; 86850; 86900; 86901; 87389; 87635; 96372